=== PATIENT | female | born 1965 | race Caucasian/White ===

== ENCOUNTER 2024-06-29 21:07 | Emergency (ER) | payer BC, SELFPAY ==
[2024-06-29 21:13] VITALS: BP 134/84
[2024-06-29 23:28] VITALS: BP 132/72
--- NOTE | 2024-06-29 23:44 | ED.GENMED ---
History of Present Illness
<ASHKAN Irizarry - Last Filed: 06/30/24 00:17>
General
Chief Complaint: Head Injury
Source: patient and family
Time Seen by Provider: 06/29/24 23:40
Nursing documentation reviewed up to this point in time: agreed with
History of Present Illness
History of Present Illness:
Patient is a 59 year old female with a PMH of migraines and a concussion presents to the ED with complaints of a head injury x 12 hours. She states around noon she hit her head on the top of her car. She denies losing consciousness and is not on
blood thinners. Patient admits to feeling nauseas after hitting her head but denies any now. The pain is described as a constant dull ache with sharp pain that comes and goes. It is generalized around her head with the sharp pain coming on the right
side, top, and back of her head mostly. She stated the sharp pain is similar to the pain when she would have a migraine. The pain is worse with light and head movement. It radiates to the top of her neck. She tried Tylenol at 800pm which mildly
helped symptoms. Patient admits to slight eye pressure b/l and a mild brain fog. She denies changes in vision chest pain palpitations sob light headedness numbness tingling fever bleeding.
Patient has a PMH of migraines anxiety and a concussion. The concussion was in January 2023. She denies alcohol or tobacco consumption. She is on Vyvanse and Pristiq for anxiety.
Past History
<ASHKAN Irizarry - Last Filed: 06/30/24 00:17>
Past History
ED Past Medical History: Other (Migraines) and Other (anxiety)
ED Past Surgical History: Orthopedic (ganglion cystectomy)
Social History
Tobacco: Non-smoker
Drug: None
Personal:
Living: with family
Employment: Employed
Family History
Family History: Negative Early CAD
Review of Systems
<Artem Marquezshanika JAY - Last Filed: 06/30/24 00:17>
Review of Systems
Allergies reviewed?: Yes
Other source history: family
Constitutional: Reports no symptoms
Respiratory: Reports no symptoms
Cardiac: Reports no symptoms
ABD/GI: Reports nausea
Skin: Reports no symptoms
Neurological: Reports no symptoms
Phy Exam
<Artem Alida, STPA - Last Filed: 06/30/24 00:17>
General Physical Exam
General Presentation: well appearing
General age: appears stated age
General Habitus: normal
General Mental: alert
Cardiovascular Exam
Cardiovascular Exam: regular rate/rhythm, no edema, no gallop, no JVD and no murmur
Pulmonary Exam
Pulmonary Exam: lungs clear, no respiratory distress, no rales, chest non tender, no crackles, no rhonchi, no stridor, no wheezing and no cough
Musculoskeletal Exam
Musculoskeletal Exam: full ROM and neck pain
Course
<Artem Alida, STPA - Last Filed: 06/30/24 00:17>
Vital Signs
Initial and Last Documented VS:
Initial Vital Signs
Temp Pulse Resp BP Pulse Ox
98.5 F 80 18 134/84 95
06/29/24 21:13 06/29/24 21:13 06/29/24 21:13 06/29/24 21:13 06/29/24 21:13
Last Documented Vital Signs
Temp Pulse Resp BP Pulse Ox
98.5 F 74 22 132/72 97
06/29/24 21:13 06/29/24 23:28 06/29/24 23:28 06/29/24 23:28 06/29/24 23:28
<Lorenzo Wheatley DO - Last Filed: 06/30/24 00:32>
Vital Signs
Initial and Last Documented VS:
Initial Vital Signs
Temp Pulse Resp BP Pulse Ox
98.5 F 80 18 134/84 95
06/29/24 21:13 06/29/24 21:13 06/29/24 21:13 06/29/24 21:13 06/29/24 21:13
Last Documented Vital Signs
Temp Pulse Resp BP Pulse Ox
98.5 F 74 22 132/72 97
06/29/24 21:13 06/29/24 23:28 06/29/24 23:28 06/29/24 23:28 06/29/24 23:28
<ASHKAN Irizarry - Last Filed: 06/30/24 00:17>
MDM/Problems Addressed
Differential Diagnosis Includes:
migraine, tension headache, head contusion
MDM/Problems Addressed:
Order CT give pain meds and monitor
<ASHKAN Irizarry - Last Filed: 06/30/24 00:17>
*Critical Care Note
Total Time (30-74mins, 75-104mins- exclusive of procedures): Not Applicable
ED Attending Note
<ASHKAN Irizarry - Last Filed: 06/30/24 00:17>
-
Portions of this chart may have been created with voice recognition software.� Occasional wrong word or��sound alike� substitutions may have occurred due to the inherent limitations of voice recognition software.
<Lorenzo Wheatley DO - Last Filed: 06/30/24 00:32>
ED Attending Note
Patient seen and examined by attending physician: Yes
I performed the substantive portion of visit, reviewed & personally made and approve the management plan that is documented in note by myself or FREDI.: Yes
ED Attending Note:
This a pleasant 59-year-old female that presents with minor head injury. Around noon yesterday, she hit her head on the rubber molding of the car door while reaching into her car. She states she was wearing a hat at the time. She had some nausea
initially but that resolved. She has a dull ache. She states that Tylenol helped relieve some of her headache symptoms. She has similar pain to her typical migraines. She states that the light and movement seem to exacerbate her symptoms. She
does have a history of concussions. She works as a teacher. Patient reports no visual acuity changes. Patient was seen in conjunction with the PA student. I have reviewed and agree with the history and treatment plan presented. On my
independent physical exam, patient is awake, alert, and oriented x3, no acute distress. No cerebellar dysfunction noted. No horizontal or vertical nystagmus. Membrane is intact. No slurred speech. Mentation is intact.
Through shared decision making, patient opted to not get a CAT scan at this point. We did discuss the pros and cons of the CAT scan and she decided along with her significant other to forego the CAT scan at this point. Patient's symptoms are
relatively mild. Significant other will wake her up this evening. Patient expressed good understanding of discharge instructions. She will return to the ER as needed.
Discharge Plan
Departure
Patient Disposition: Home (Routine Discharge)
Date of Disposition: 06/30/24
Time of Disposition: 00:28
Patient with high blood pressure during this ER visit?: Yes
Condition: Good
Discharge Problem:
Concussion, Head injury
Instructions: Concussion, Adult (DC), BLOOD PRESSURE, Head Injury in Adults (DC)
Prescriptions:
No Action
albuterol sulfate 1 PUFF HFA aerosol inhaler
1 puff inhalation QIDPRN PRN (Reason: QUICK RELIEF OF WHEEZING ONLY) Qty: 1 0RF
fluticasone propion-salmeterol [Advair Diskus] 1 EACH blister with device
2 ea IH DAILY
lisdexamfetamine [Vyvanse] 60 MG capsule
60 mg PO DAILY
desvenlafaxine succinate [Pristiq] 50 MG tablet extended release 24 hr
75 mg PO DAILY
amoxicillin-pot clavulanate 875-125 mg tablet
1 tab PO BID Qty: 20 0RF
amoxicillin 500 mg tablet
500 mg PO Q8H 10 Days Qty: 30 0RF
methylprednisolone [Medrol (Gómez)] 4 mg tablets,dose pack
4 mg PO DIRECTED Qty: 21 0RF
Referrals:
Ravin Allen MD [Family Provider] -
Activity Restrictions/Additional Instructions:
It was a pleasure meeting you and taking part in your care. We hope for your continued healing and wellness.
Please read discharge instructions in their entirety. However, they are for general education and may not describe your exact diagnosis at discharge. Information on your ER visit and medical conditions were discussed with you along with appropriate
follow up information...
If indicated, please take your medications as instructed and indicated on discharge paperwork.
Please schedule a follow up appointment as directed. Call to schedule an appointment
Please return to the emergency department with ANY change in, persisting, or worsening of symptoms. If any of your symptoms do not improve, or persist, or become more severe within 6-12 hours, please return to the emergency department for further
care.
Please return to the emergency department if you develop a headache, neck pain/stiffness, fever greater than 100.4F, chest pain, shortness of breath, persistent nausea, vomiting, slurred speech, difficulty walking, numbness/tingling, weakness, signs
of infection or any other symptoms that are worrisome to you.
If you have any questions or concerns please do not hesitate to call the Hospital at or E-mail me directly at [email or web address]
Interventions
Interventions:
*Risk Screen - Suicide Last Done: 06/29/24 21:13
*General Assessment Last Done: 06/29/24 21:13
*Neglect/Abuse Screening Last Done: 06/29/24 21:13
ED- Fall Risk Assessment Last Done: 06/29/24 23:28
ED- Neurological Assessment Last Done: 06/29/24 23:28
ED-Skin Assessment Last Done: 06/29/24 23:28
Discharge Date and Time
Print Language: [place]
[2024-06-30 00:27] VITALS: BP 128/74
== END 2024-06-30 00:36 | disposition home or self-care (01) ==
LOC: EMR 21:07
PROVIDERS: EMERGENCY PHYSICIAN Student in an Organized Health Care Education/Training Program; FAMILY PHYSICIAN Internal Medicine
DX: S06.0X0A Concussion without loss of consciousness, initial encounter (principal); R51.9 Headache, unspecified; R11.0 Nausea; W22.8XXA Striking against or struck by other objects, initial encounter; F41.9 Anxiety disorder, unspecified; K58.9 Irritable bowel syndrome, unspecified; M19.90 Unspecified osteoarthritis, unspecified site; F32.A Depression, unspecified; J45.909 Unspecified asthma, uncomplicated; Z87.820 Personal history of traumatic brain injury; Z88.1 Allergy status to other antibiotic agents
CPT/HCPCS: 99282

== ENCOUNTER 2024-11-11 12:22 | Inpatient (IN) | payer BC, SELFPAY ==
[2024-11-10] VITALS (10 sets, daily range): BP systolic 110–143; BP diastolic 60–98; BMI 31.6; BMI 31.2
[2024-11-10 05:54] LABS: % Basophils 0.3 % (0-2); % Eosinophils 0.2 % (0-6); % Immature Granulocytes 0.7 % (0-0.5); % Lymphocytes 9.7 % (20.5-51.1); % Monocytes 9.2 % (1.7-9.3); % Neutrophils 79.9 % (42.2-75.2); Absolute Immature Granulocytes 0.1 10^3/uL (0-0.05); Absolute Lymphocytes 0.9 10^3/uL (1.2-3.4); Absolute Monocytes 0.8 10^3/uL (0.1-0.6); Absolute Neutrophils 7.1 10^3/uL (1.4-6.5); Hematocrit 40.2 % (37.0-47.0); Hemoglobin 13.5 g/dL (12.0-16.0); Mean Corp Hgb Conc. 33.6 g/dL (33.0-37.0); Mean Corpuscular Hgb 29.5 pg (27.0-31.0); Nucleated Red Blood Cells % 0 %; Platelet Count 190 10^3/uL (130-400); Red Blood Cell Count 4.57 10^6/uL (4.20-5.40); Red Cell Dist. Width 12.7 % (11.5-14.5); White Blood Cell Count 8.9 10^3/uL (4.8-10.8)
--- NOTE | 2024-11-10 06:13 | ED.GENMED ---
History of Present Illness
General
Chief Complaint: Dizziness
Source: patient
Time Seen by Provider: 11/10/24 06:03
History of Present Illness
History of Present Illness:
59-year-old female presents to the emergency room complaining of fever, chills, cough for the past week or so. Patient has been seen at an urgent care where she had a negative flu and COVID test. She evidently also had a chest x-ray about 5 days
ago which was reported as negative. She has been using Symbicort, albuterol, [id number] cold remedies and a course of prednisone without improvement. She states she has had a fever of up to 104 every day for the past 8 days. No shortness of
breath. She has nausea but no vomiting.
Past History
Past History
ED Past Medical History: Other (Migraines) and Other (anxiety)
ED Past Surgical History: Orthopedic (ganglion cystectomy)
Social History
Tobacco: Non-smoker
Drug: None
Personal:
Living: with family
Employment: Employed
Family History
Family History: Negative Early CAD
Phy Exam
Physical Exam
Physical Exam:
General: Awake, Alert, Oriented X3. No acute distress.
Vitals: febrile
Head: Atraumatic
Eyes: Pupils equal, EOMI
Throat: Airway intact, no exudates, dry mucosa
Neck: Trachea midline
Lungs: Clear and equal b/l
Heart: Regular rate, no murmurs
Abd: Soft, Nontender, No pulsatile mass
Neuro: Nonfocal
Skin: Warm, dry, no rash
Extremities: pulses equal b/l, no edema
Sepsis
Sepsis Screening
Sepsis Assessment: Sepsis
Sepsis Screen
Sepsis Screen: Sepsis
Date: 11/10/24
Time: 10:45
Course
Orders/Labs/Results
Orders:
Orders
11/10/24 05:35
COVID-19 Antigen Urgent
Source: Nasal Swab
Complete Blood Count/With Diff Urgent
Comprehensive Metabolic Panel Urgent
Influenza A+B Rapid Molecular Urgent
SERENA Source: Nasal Swab
Specimen Description:
11/10/24 06:03
Acetaminophen [Tylenol] 1,000 mg PO NOW STA
11/10/24 06:11
0.9% Sodium Chloride 1000 ml [Nss] 1,000 ml IV BOLUS
Ketorolac [Toradol] 15 mg IV NOW STA
11/10/24 06:12
CR Chest - 2 Views Urgent
Comment:
Reason For Exam: cough, fever
11/10/24 07:20
Azithromycin 500 mg/250 ml [Zithromax Infusion] 500 mg in 250 ml IV NOW
CefTRIAXone [Rocephin] 1,000 mg IV NOW STA
11/10/24 07:39
Lactic Acid Q4H
Comment: CANCEL 2nd LACTIC ACID IF 1st LACTIC ACID IS LESS THAN 2
Blood Culture Q30M
SERENA Source: Blood/Venous
Specimen Description:
Blood Culture Q30M
SERENA Source: Blood/Venous
Specimen Description:
11/10/24 10:22
Admit/Transfer Patient As Directed
Co-Sign Provider:
Level of Care: Observation services
Assign to:: Medical/Surgical
Physician / Group: Raj rivera
Diagnosis: community acquired pneumonia
11/10/24 10:23
PRN Pain Medication Management As Directed
May give lesser potent ordered pain med per pt: Yes
preference::
Protocol:: Medication orders for pain may be administered in a
manner that supports deferring to patient preference
when the pt is:
- Requesting an ordered lesser potent pain medication.
Least to most potent pain medications are defined
as: acetaminophen < NSAID < tramadol < opioids
(morphine, oxycodone, hydromorphone).
- Requesting a lesser dose of the same medication IF
ORDERED.
- Requesting a less intrusive route of administration
if both routes are prescribed by the provider (PO <
IV).
11/10/24 10:24
Code Status As Directed
Resuscitation Status: Full Code
11/10/24 11:30
Lactic Acid Q4H
Comment: CANCEL 2nd LACTIC ACID IF 1st LACTIC ACID IS LESS THAN 2
Abnormal Lab Results
11/10/24 11/10/24
05:35 07:39
Abs Immat Gran (auto) 0.1 H 10^3/uL
(0-0.05)
Absolute Neuts (auto) 7.1 H 10^3/uL
(1.4-6.5)
Absolute Lymphs (auto) 0.9 L 10^3/uL
(1.2-3.4)
Absolute Monos (auto) 0.8 H 10^3/uL
(0.1-0.6)
Immature Gran % 0.7 H %
(0-0.5)
Neutrophils % 79.9 H %
(42.2-75.2)
Lymphocytes % 9.7 L %
(20.5-51.1)
Sodium 132 L mmol/L
(135-145)
Chloride 94 L mmol/L
(98-107)
Glucose 115 H mg/dl
(70-99)
Lactic Acid 0.6 L mmol/L
(0.7-2.0)
AST 42 H U/L
(14-36)
ALT 40 H U/L
(0-35)
11/10/24 05:35
11/10/24 05:35
Vital Signs
Initial and Last Documented VS:
Initial Vital Signs
Temp Pulse Resp BP Pulse Ox
101.9 F H 122 22 135/78 92
11/10/24 04:33 11/10/24 04:33 11/10/24 04:33 11/10/24 04:33 11/10/24 04:33
Last Documented Vital Signs
Temp Pulse Resp BP Pulse Ox
98.7 F 80 24 116/66 98
11/10/24 09:30 11/10/24 09:30 11/10/24 09:30 11/10/24 09:30 11/10/24 09:30
MDM/Problems Addressed
Differential Diagnosis Includes:
flu, covid, other viral illness, pneumonia, dehydration
MDM/Problems Addressed:
Patient presents with dizziness, weakness, cough. Patient treated with Toradol, IV fluid. Labs show reassuring results. Chest x-ray shows left upper lobe infiltrate. My initial plan was to discharge the patient but even after IV fluids and IV
Toradol she felt to dizzy and weak to go home. She did not feel safe going home. Therefore we have asked the hospitalist to hospitalize the patient for IV antibiotics and supportive care.
*Radiology
Radiology exam reviewed: preliminary read by ED provider (Left upper lobe infiltrate on my review of the patient's chest x-ray)
*Pulse Oximetry
Patient hypoxic: no
*Critical Care Note
Total Time (30-74mins, 75-104mins- exclusive of procedures): Not Applicable
ED Attending Note
-
Portions of this chart may have been created with voice recognition software.� Occasional wrong word or��sound alike� substitutions may have occurred due to the inherent limitations of voice recognition software.
Discharge Plan
Departure
Patient Disposition: Admit
Date of Disposition: 11/10/24
Time of Disposition: 07:24
Admit to: Med/Surg
Presentation/result/management discussed w/ accepting MD/DO: Hospitalist
Condition: Fair
Discharge Problem:
Pneumonia
Interventions
Interventions:
*Risk Screen - Suicide Last Done: 11/10/24 04:33
*General Assessment Last Done: 11/10/24 04:33
*Neglect/Abuse Screening Last Done: 11/10/24 04:33
ED- Fall Risk Assessment Last Done: 11/10/24 05:03
*ED COVID-19 Vaccine History Last Done: 11/10/24 05:07
ED- Neurological Assessment Last Done: 11/10/24 05:03
ED- Cardiac Assessment Last Done: 11/10/24 05:03
ED Swallowing Screen Last Done: 11/10/24 05:11
[2024-11-10] MEDS: TORADOL 15 MG IV (06:17)
[2024-11-10] MEDS: TYLENOL 1000 MG PO (06:17)
[2024-11-10] MEDS: NSS 1000 IV ×2 (06:19→14:11)
[2024-11-10 06:21] LABS: COVID-19 Antigen Negative (Negative)
[2024-11-10 06:32] LABS: ALT (SGPT) 40 U/L (0-35); AST (SGOT) 42 U/L (14-36); Albumin 3.7 g/dl (3.5-5.0); Alkaline Phosphatase 87 U/L (38-126); Blood Urea Nitrogen 13 mg/dl (7-17); Calcium 8.5 mg/dl (8.4-10.2); Carbon Dioxide 27 mmol/L (22-30); Chloride 94 mmol/L (98-107); Estimated Creatinine Clearance 81 ml/min; Glucose 115 mg/dl (70-99); Potassium 3.5 mmol/L (3.5-5.1); Sodium 132 mmol/L (135-145); Total Bilirubin 1.2 mg/dl (0.2-1.3); Total Protein 6.4 g/dl (6.3-8.2); eGFR > 60.00
[2024-11-10] MEDS: ROCEPHIN 1000 MG IV (07:43)
[2024-11-10] MEDS: ZITHROMAX INFUSION 250 IV (07:43)
[2024-11-10 08:03] LABS: Lactic Acid 0.6 mmol/L (0.7-2.0)
--- NOTE | 2024-11-10 10:17 | HPS.HSE ---
Family Physician
-
Family Physician: Ravin Allen
Chief Complaint
-
cough/congestion, sob
History of Present Illness
59 y/o F hx of Asthma (on Symbicort) presents to ER with cough, congestion and SOB. She reports a likely viral illness that began 10 days ago, saw urgent care and was negative for COVID and Flu. CXR was clear at that time. In the interim, she
reports worsening SOB, worsening cough and fevers up to 102. Had chest pain with coughing. No chills. some nausea from lack of oral intake but no other GI or symptoms. Trialled OTC remedies and steroids (from prior Asthma flare) without
improvement. In ER, found to have MAURICIO PNA and attempted to DC from ER but patient felt dizzy and unsteady on feet. Patient admitted for observation and tx of PNA.
Medical History
Past Medical History
Past Medical History: Reports Other (hx of Asthma (on Symbicort))
Past Surgical History: Reports None
Social History
Tobacco: Non-smoker
Alcohol: None
Personal:
Employment: Employed
Family History
Family History: Not pertinent
Allergies / Home Medications
Allergies reflects when Allergies were last updated in [facility].
Home Medications with original date entered in [facility]
Allergy/Medication List:
Allergies
Allergy/AdvReac Type Severity Reaction Status Date / Time
doxycycline Allergy Mild Itching Verified 11/10/24 09:26
Home Medications
albuterol sulfate 90 mcg/actuation aerosol inhaler 1 puff inhalation QIDPRN PRN QUICK RELIEF OF WHEEZING ONLY ##1 06/16/14
desvenlafaxine succinate 50 mg tablet,extended release 24 hr (Pristiq) 75 mg PO DAILY 08/13/19
lisdexamfetamine 60 mg capsule (Vyvanse) 60 mg PO DAILY 08/13/19
budesonide-formoterol HFA 80 mcg-4.5 mcg/actuation aerosol inhaler (Symbicort) 2 puff inhalation BID 11/10/24
omeprazole 20 mg tablet,delayed release 20 mg PO DAILY 11/10/24
Review of Systems
-
A 12 point ROS was completed and negative except as noted: Yes
Physical Exam
Vital Signs
Vital Signs
Temp Pulse Resp BP Pulse Ox
98.7 F 80 24 116/66 98
11/10/24 09:30 11/10/24 09:30 11/10/24 09:30 11/10/24 09:30 11/10/24 09:30
Physical Exam
General: No Apparent Distress
HEENT: NormoCephalic and Anicteric
Respiratory: Crackles (end expiratory crackles MAURICIO); No Wheezes
Cardiac: S1/S2 and Regular Rhythm
Neuro: AO x 3
Hematologic/Lymphatic: No Lymphadenopathy
Psych: Calm
Laboratory Results
-
11/10/24 05:35
11/10/24 05:35
Laboratory Results
Lactic Acid 0.6 mmol/L (0.7-2.0) L 11/10/24 07:39
Total Bilirubin 1.2 mg/dl (0.2-1.3) 11/10/24 05:35
AST 42 U/L (14-36) H 11/10/24 05:35
ALT 40 U/L (0-35) H 11/10/24 05:35
Alkaline Phosphatase 87 U/L (38-126) 11/10/24 05:35
Data Reviewed
-
Diagnostic Radiology: Image Personally Visualized and interpreted (infiltrate MAURICIO)
Lab Data: Labs Reviewed by me
Impression/Plan
-
Assessment:
Community acquired pneumonia
- likely sequelae of viral infection (prior COVID, Flu negative at urgent care)
- CXR with MAURICIO infiltrate; await formal read
- Observation admission; d/w patient and agreeable
- continue Rocephin and Azithromycin, day 1
- supportive care, mucolytics, IS/Acapella
mild hyponatremia
- continue IVF
Hx of Asthma
- hold Symbicort
- prn nebs
Anxiety/Depression
- continue home Pristiq/Vyvanse
DVT ppx: Lovenox
Code: Full
[2024-11-10] MEDS: PRISTIQ 75 MG PO (14:20)
[2024-11-10] MEDS: MUCINEX 1200 MG PO ×2 (14:20→20:50)
[2024-11-10] MEDS: TYLENOL 650 MG PO ×2 (14:31→20:50)
--- NOTE | 2024-11-10 14:44 | PTCARENOTE ---
Received Pt from ED on stretcher. Walked from stretcher to bed with standby assist. AAOx3 able to make needs known. Oriented to room and use of call cartwright. PRN Tylenol administered for generalized body aches. Call cartwright within reach.
[2024-11-10] MEDS: LOVENOX 40 MG SC (17:17)
[2024-11-11] MEDS: NSS 1000 IV (03:18)
[2024-11-11 07:14] VITALS: BP 146/75
[2024-11-11] MEDS: PROTONIX 40 MG PO (07:24)
[2024-11-11] MEDS: TYLENOL 650 MG PO ×3 (07:24→20:16)
[2024-11-11] MEDS: ZITHROMAX 250 MG PO (07:24)
[2024-11-11] MEDS: MUCINEX 1200 MG PO ×2 (07:24→20:12)
[2024-11-11] MEDS: ROCEPHIN 1000 MG IV (07:25)
[2024-11-11] MEDS: STERILE WATER FOR INJECTION 10 ML IV (07:25)
[2024-11-11] MEDS: PRISTIQ 75 MG PO (07:25)
[2024-11-11 07:45] LABS: Hematocrit 37.3 % (37.0-47.0); Hemoglobin 12.3 g/dL (12.0-16.0); Mean Platelet Volume 8.7 fL (7.4-10.4); Platelet Count 185 10^3/uL (130-400); Red Blood Cell Count 4.24 10^6/uL (4.20-5.40); Red Cell Dist. Width 12.6 % (11.5-14.5); White Blood Cell Count 7.7 10^3/uL (4.8-10.8)
[2024-11-11 07:59] LABS: Blood Urea Nitrogen 11 mg/dl (7-17); Calcium 7.7 mg/dl (8.4-10.2); Carbon Dioxide 25 mmol/L (22-30); Chloride 96 mmol/L (98-107); Estimated Creatinine Clearance 92 ml/min; Glucose 90 mg/dl (70-99); Potassium 3.6 mmol/L (3.5-5.1); Sodium 131 mmol/L (135-145); eGFR > 60.00
[2024-11-11 09:30] VITALS: BP 121/74; PULSE 90; O2SAT 96
[2024-11-11 09:45] VITALS: BP 121/74; PULSE 89; O2SAT 97
--- NOTE | 2024-11-11 09:49 | PTOTSP ---
pt currently requires supervision to no assistance to complete simple ADLs, functional transfers, ambulation. pt reports getting up to ambulate to bathroom without difficulty. no acute OT needs identified, will sign off at this time.
--- NOTE | 2024-11-11 12:03 | W.PN.HOSP.TC ---
Today's Communication/Plan
-
continue IV abx
monitor fever curves
Assessment / Plan
Assessment / Plan
Assessment:
Community acquired pneumonia
- likely sequelae of viral infection (prior COVID, Flu negative at urgent care)
- CXR: Moderate left upper lobe pneumonia
- continue Rocephin day 2 and Azithromycin, day 2. Blood cultures NGTD.
- supportive care, mucolytics, IS/Acapella
mild hyponatremia
- cap IVF after current bag
- follow BMP
Hx of Asthma
- hold Symbicort
- prn nebs
Anxiety/Depression
- continue home Pristiq/Vyvanse
DVT ppx: Lovenox
Code: Full
Anticipated Discharge: Within 24 hours
Subjective/Interval History
-
Date of Service: November 11, 2024
recurrent fevers, most recent Fever and T-max of 103.1 this morning at 7 AM
O2 Sats 92-93% from 98%
no complaints
Objective Data
-
Labs:
Laboratory Results
11/11/24 11/11/24
07:15 07:16
WBC 7.7
Hgb 12.3
Hct 37.3
Plt Count 185
Sodium 131 L
Potassium 3.6
Chloride 96 L
Carbon Dioxide 25
BUN 11
Creatinine 0.7
Glucose 90
Calcium 7.7 L
Vital Signs:
Vital Signs
Temp Pulse Resp BP Pulse Ox
99.6 F 107 17 146/75 93
11/11/24 11:55 11/11/24 07:14 11/11/24 07:14 11/11/24 07:14 11/11/24 07:15
I&O
11/10/24 11/11/24 11/12/24
06:59 06:59 06:59
Intake Total 1080 / 1080
Balance 1080 / 1080
Physical Exam
-
General: No Apparent Distress
HEENT: Normocephalic and Atraumatic
Respiratory: Crackles (end expiratory crackles MAURICIO) and Decreased Breath Sounds; Negative Wheezes
Cardiac: Regular Rhythm and S1/S2
GI: Soft and Nontender
Genito-urinary: No Costovertebral Tender
Neuro: AO x 3
Hematologic / Lymphatic: No Lymphadenopathy
Psych: Calm
Data Reviewed
-
Total Time Spent with Patient (in minutes): 42
Labs: Labs Reviewed by me
[2024-11-11 15:33] VITALS: BP 129/57
[2024-11-11] MEDS: LOVENOX 40 MG SC (17:20)
[2024-11-11 23:00] VITALS: BP 126/65
[2024-11-12] MEDS: TYLENOL 650 MG PO ×3 (02:28→22:09)
[2024-11-12] MEDS: MUCINEX 1200 MG PO ×2 (07:21→19:37)
[2024-11-12] MEDS: PRISTIQ 75 MG PO (07:21)
[2024-11-12] MEDS: PROTONIX 40 MG PO (07:21)
[2024-11-12] MEDS: ZITHROMAX 250 MG PO (07:21)
[2024-11-12] MEDS: STERILE WATER FOR INJECTION 10 ML IV ×2 (07:22→10:14)
[2024-11-12] MEDS: ROCEPHIN 1000 MG IV ×2 (07:22→10:14)
[2024-11-12 07:28] VITALS: BP 123/80
[2024-11-12 08:17] LABS: Hematocrit 35.8 % (37.0-47.0); Hemoglobin 12.3 g/dL (12.0-16.0); Mean Corp Hgb Conc. 34.4 g/dL (33.0-37.0); Mean Corpuscular Hgb 29.8 pg (27.0-31.0); Mean Corpuscular Volume 86.7 fL (81.0-99.0); Mean Platelet Volume 8.8 fL (7.4-10.4); Platelet Count 204 10^3/uL (130-400); Red Blood Cell Count 4.13 10^6/uL (4.20-5.40); Red Cell Dist. Width 12.6 % (11.5-14.5); White Blood Cell Count 7.3 10^3/uL (4.8-10.8)
[2024-11-12 08:26] LABS: Blood Urea Nitrogen 10 mg/dl (7-17); Carbon Dioxide 30 mmol/L (22-30); Chloride 100 mmol/L (98-107); Estimated Creatinine Clearance 92 ml/min; Glucose 103 mg/dl (70-99); Potassium 3.5 mmol/L (3.5-5.1); Sodium 134 mmol/L (135-145); eGFR > 60.00
--- NOTE | 2024-11-12 11:08 | W.PN.HOSP.TC ---
Today's Communication/Plan
-
increase Rocephin to 2g
add chest PT to IS/Acapella.
nebs to standing + PRN for today
monitor fever curve
Assessment / Plan
Assessment / Plan
Assessment:
Community acquired pneumonia
- likely sequelae of viral infection (prior COVID, Flu negative at urgent care)
- CXR: Moderate left upper lobe pneumonia
- continue Rocephin 2g, day 3 and Azithromycin, day 3/5. Blood cultures NGTD.
- supportive care, mucolytics, IS/Acapella. add chest PT
- if further febrile into tomorrow; will obtain CT to evaluate for abscess or other complications.
mild hyponatremia
- cap IVF after current bag
- follow BMP
Hx of Asthma
- hold Symbicort
- standing nebs x 24 hours + prn nebs
Anxiety/Depression
- continue home Pristiq/Vyvanse
DVT ppx: Lovenox
Code: Full
Anticipated Discharge: Within 24 hours
Subjective/Interval History
-
Date of Service: November 12, 2024
Tmax in last 24 hours is 101.2
feels slight improvement, remains with cough/congestion
working with IS/Acapella, agreeable to chest PT
not on O2
Objective Data
-
Labs:
Laboratory Results
11/12/24
07:29
WBC 7.3
Hgb 12.3
Hct 35.8 L
Plt Count 204
Sodium 134 L
Potassium 3.5
Chloride 100
Carbon Dioxide 30
BUN 10
Creatinine 0.7
Glucose 103 H
Calcium 8.0 L
Vital Signs:
Vital Signs
Temp Pulse Resp BP Pulse Ox
98.6 F 85 18 123/80 96
11/12/24 07:28 11/12/24 07:28 11/12/24 07:28 11/12/24 07:28 11/12/24 07:28
I&O
11/11/24 11/12/24 11/13/24
06:59 06:59 06:59
Intake Total 1080 / 1080 240 / 240
Balance 1080 / 1080 240 / 240
Physical Exam
-
General: No Apparent Distress; Negative Respiratory Distress
HEENT: Normocephalic and Atraumatic
Respiratory: Wheezes (MAURICIO) and Crackles (MAURICIO)
Cardiac: Regular Rhythm and S1/S2
GI: Soft and Nontender
Genito-urinary: No Costovertebral Tender
Musculoskeletal: No Edema
Neuro: AO x 3
Psych: Calm
Data Reviewed
-
Total Time Spent with Patient (in minutes): 42
Labs: Labs Reviewed by me
--- NOTE | 2024-11-12 11:24 | CM ---
Met with patient to obtain information for assessment. Patient stated that she lives with her spouse and 18 y/o son in a one story home with one step to enter. She described herself as independent with all of her ADLs, personal care, dressing and
bathing. She can do ld teacher, cook, clean and do laundry. Patient is a teacher, full-time. She drives and can transport herself to her job, do her own shopping and get herself to her appointments. Patient denied any DME in her home.
She has never had VN services.
She has never been to a SNF.
Patient has a prescription plan and uses, [facility] for all of her medications (in [place]). Her PCP is, Miller Allen.
Patient expressed that she does not feel that she has any need at this time. She stated that her spouse would be able to pick her up when mediclaly cleared.
Plan: Case management will continue to follow and assist with discharge planning. Home when stable.
[2024-11-12] MEDS: VENTOLIN NEBULES 2.5 MG INH ×3 (11:34→20:01)
--- NOTE | 2024-11-12 12:39 | PN.CDI ---
CDI
- -
CDI:
Physician Documentation Request
Admit Date: 11/11/24 12:22
Dear Doctor Stephanie,
Please review the following and provide your response in the progress notes.
Clinical Indicators:
pt admitted for community acquired pneumonia.
Selected Entries
11/10/24
04:58 11/10/24
20:57
Temp 103.2 F H 102.8 F H
Pulse 108 96
11/11/24
07:14
Temp 103.1 F H
Pulse 107
Please clarify which of the following most accurately describes the status of the patient's infection:
Sepsis
- Systemic manifestations of infection, with 2 or more SIRS criteria which include:
- Fever >100.4 degrees F or hypothermia < 96.8 degrees F
- Leukocytosis - WBC > 12,000 or leukopenia - WBC < 4,000 or > 10% bands
- Tachycardia > 90 beats per minute
- Tachypnea - RR > 20 breaths per minute or PaCO2 , 32mmHg
Source: [employer] Manual 2013
Community acquired pneumonia Only, Without Systemic Illness
Other
Use of terms such as suspected, likely, concern for, or probable (associated with a specific diagnosis that is being evaluated, monitored, or treated as if it exists) are acceptable and can be coded in the inpatient setting, when documented at the
time of discharge.
Thank you,
Marci Weiss RN, BSN
CDI Specialist
[employer]
Please use your independent medical judgment in providing your response.
[2024-11-12 15:45] VITALS: BP 121/76
[2024-11-12] MEDS: LOVENOX 40 MG SC (17:10)
[2024-11-12 23:00] VITALS: BP 129/66
--- NOTE | 2024-11-13 02:39 | DOWNTIME ---
There was a [employer] Client Sound Engineer Downtime on 11/13/2024 from 0100 to 11/13/2023 at 0235 . Downtime documentation of patient's care, including medication administrations, has been reconciled in the electronic record per guidelines. Refer to the
patient's paper chart under the miscellaneous tab to see printed paper medication records and downtime forms.
[2024-11-13] MEDS: TYLENOL 650 MG PO ×2 (06:10→11:49)
[2024-11-13 07:05] VITALS: BP 117/63
[2024-11-13] MEDS: VENTOLIN NEBULES 2.5 MG INH (07:17)
[2024-11-13 07:19] LABS: Blood Urea Nitrogen 9 mg/dl (7-17); Calcium 8.4 mg/dl (8.4-10.2); Carbon Dioxide 29 mmol/L (22-30); Chloride 100 mmol/L (98-107); Estimated Creatinine Clearance 107 ml/min; Glucose 116 mg/dl (70-99); Potassium 3.4 mmol/L (3.5-5.1); Sodium 136 mmol/L (135-145); eGFR > 60.00
[2024-11-13 07:35] LABS: Hematocrit 35.7 % (37.0-47.0); Hemoglobin 12.3 g/dL (12.0-16.0); Mean Corp Hgb Conc. 34.5 g/dL (33.0-37.0); Mean Corpuscular Hgb 29.4 pg (27.0-31.0); Mean Corpuscular Volume 85.2 fL (81.0-99.0); Mean Platelet Volume 8.8 fL (7.4-10.4); Platelet Count 260 10^3/uL (130-400); Red Blood Cell Count 4.19 10^6/uL (4.20-5.40); Red Cell Dist. Width 12.7 % (11.5-14.5); White Blood Cell Count 6.4 10^3/uL (4.8-10.8)
[2024-11-13] MEDS: MUCINEX 1200 MG PO (08:13)
[2024-11-13] MEDS: PRISTIQ 75 MG PO (08:13)
[2024-11-13] MEDS: PROTONIX 40 MG PO (08:14)
[2024-11-13] MEDS: ZITHROMAX 250 MG PO (08:16)
[2024-11-13] MEDS: STERILE WATER FOR INJECTION 20 ML IV (09:25)
[2024-11-13] MEDS: ROCEPHIN 2000 MG IV (09:25)
--- NOTE | 2024-11-13 11:28 | W.PN.HOSP.TC ---
Today's Communication/Plan
-
dc home
Assessment / Plan
Assessment / Plan
Assessment:
Sepsis POA (fever, tachycardia)
Community acquired pneumonia
- likely sequelae of viral infection (prior COVID, Flu negative at urgent care)
- CXR: Moderate left upper lobe pneumonia
- discharge on Cefdinir x 6 further days and azithromycin x 1 further day
- supportive care, mucolytics, IS/Acapella, tessalon, prn Albuterol
mild hyponatremia
- cap IVF after current bag
- follow BMP
Hx of Asthma
- resume Symbicort in 1 week
- rescue inhaler prn at home
Anxiety/Depression
- continue home Pristiq/Vyvanse
DVT ppx: Lovenox
Code: Full
More than 30 minutes spent in discharge including
Final examination of the patient
Summarizing hospital stay
Instructions for continuing care to all relevant caregivers
Preparation of discharge records, prescriptions, and referral forms
Total time spent (in minutes): 41
Anticipated Discharge: Today
Subjective/Interval History
-
Date of Service: November 13, 2024
bringing up more mucous; clear, not brown
no fevers >24 hours
no hypoxia
Objective Data
-
Labs:
Laboratory Results
11/13/24
06:41
WBC 6.4
Hgb 12.3
Hct 35.7 L
Plt Count 260 D
Sodium 136
Potassium 3.4 L
Chloride 100
Carbon Dioxide 29
BUN 9
Creatinine 0.6
Glucose 116 H
Calcium 8.4
Vital Signs:
Vital Signs
Temp Pulse Resp BP Pulse Ox
98.1 F 71 16 117/63 96
11/13/24 07:05 11/13/24 07:20 11/13/24 07:20 11/13/24 07:05 11/13/24 09:59
I&O
11/12/24 11/13/24 11/14/24
06:59 06:59 06:59
Intake Total 240 / 240 1420 / 1420
Balance 240 / 240 1420 / 1420
Physical Exam
-
General: No Apparent Distress
HEENT: Normocephalic and Atraumatic
Respiratory: Wheezes (faint MAURICIO)
Cardiac: Regular Rhythm and S1/S2
GI: Soft and Nontender
Musculoskeletal: No Edema
Neuro: AO x 3
Hematologic / Lymphatic: No Lymphadenopathy
Psych: Calm
Data Reviewed
-
Total Time Spent with Patient (in minutes): 41
Labs: Labs Reviewed by me
--- NOTE | 2024-11-13 11:34 | W.DS.TRANS ---
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
-
Discharge Instructions:
Discharge Diagnosis/Procedures community acquired pneumonia
Diet Regular
Activity As tolerated
Bathing Restrictions None
Instructions:
Stand-Alone Forms:
Changes to Home Medications: No
Discharge Medications:
DC Medications w/original date entered in [facility]
desvenlafaxine succinate 50 mg tablet,extended release 24 hr (Pristiq) 50 mg PO DAILY depression/anxiety 08/13/19
lisdexamfetamine 60 mg capsule (Vyvanse) 60 mg PO DAILYPRN PRN ADHD 08/13/19
acetaminophen 500 mg tablet 1,000 mg PO Q6H PRN mild pain 11/10/24
albuterol sulfate 90 mcg/actuation aerosol inhaler 1 puff inhalation R Q6HPRN PRN wheezing 11/10/24
benzonatate 200 mg capsule 200 mg PO TIDPRN PRN cough 11/10/24
budesonide-formoterol HFA 160 mcg-4.5 mcg/actuation aerosol inhaler (Symbicort) 2 puff inhalation R Q6 Lung/Breathing Issues 11/10/24
desvenlafaxine succinate 25 mg tablet,extended release 24 hr 25 mg PO DAILY depression/anxiety 11/10/24
magnesium oxide 400 mg PO DAILY Supplement 11/10/24
omeprazole 20 mg tablet,delayed release 20 mg PO DAILY Gastrointestinal Issue 11/10/24
azithromycin 250 mg tablet 250 mg PO DAILY #1 tab 11/13/24
cefdinir 300 mg capsule 300 mg PO BID #12 caps 11/13/24
guaifenesin 600 mg tablet, extended release 12 hr 1,200 mg (2 x 600 mg) PO Q12 #0 tabs 11/13/24
Home Medication Changes
Pending Results: No
Total time spent discharging patient (in min): 41
[2024-11-13 11:45] VITALS: BP 140/69
--- NOTE | 2024-11-13 12:12 | PTCARENOTE ---
Discharge orders acknowledged. IV site removed. Discharge instructions reviewed with pt by flower grower VICTORINO Ramon. Yenny when escorted pt to discharge lounge.
== END 2024-11-13 12:10 | disposition home or self-care (01) | DRG 871 ==
LOC: 3 WEST ACU 12:22
PROVIDERS: Student in an Organized Health Care Education/Training Program; ADMITTING PHYSICIAN Internal Medicine; EMERGENCY PHYSICIAN Emergency Medicine; FAMILY PHYSICIAN Internal Medicine
DX: A41.9 Sepsis, unspecified organism (principal); J18.9 Pneumonia, unspecified organism; E87.1 Hypo-osmolality and hyponatremia; F32.A Depression, unspecified; F41.9 Anxiety disorder, unspecified; J45.909 Unspecified asthma, uncomplicated; U09.9 Post COVID-19 condition, unspecified; Z88.1 Allergy status to other antibiotic agents; Z79.51 Long term (current) use of inhaled steroids
CPT/HCPCS: 71046; 80048; 80053; 83605; 85025; 85027; 87040; 87502; 87811; 94640; 94667; 96361; 96365; 96366; 96375; 97162; 97166; 99285